=== PATIENT | male | born 1990 | race African-American/Black ===

== ENCOUNTER 2016-09-13 06:51 | Emergency (ER) | payer SELFPAY ==
[~2016-09-13] VITALS: Ht 182.9 cm; Wt 145.1 kg
[2016-09-13 07:00] VITALS: BP 150/90
[2016-09-13] MEDS ORDERED: HYDROcodone/APAP 5/325MG 1 TAB TABLET PO ONE (07:45)
[2016-09-13] MEDS ORDERED: CYCLOBENZAPRINE 10 MG TABLET. PO ONE (07:45)
[2016-09-13] MEDS ORDERED: HYDR-971 PO (08:02)
[2016-09-13] MEDS ORDERED: CYCL10TA2 PO (08:02)
[2016-09-13] MEDS ORDERED: AMOX500C PO (08:02)
--- NOTE | 2016-09-13 08:03 | PHYS DOC ---
Past Medical History Past Medical History: Diabetes-Type II, Other Additional Past Medical Histor: Cleft palate Past Surgical History: Other Additional Past Surgical Histo: Cleft palate repair Alcohol Use: None Drug Use: None Adult General Chief Complaint Chief Complaint: DENTAL PROBLEM HPI HPI Patient is a 26 year old male presents to the emergency department with a history of dental pain and inability to completely open his mouth for the last 3 days. Patient states he has been taking 800 mg Ibuprofen 5 at a time with no relief. He denies fever, chills, nausea or vomiting. He does state he has occasional bad taste in his mouth. He does not have a dentist. Review of Systems Review of Systems Constitutional: Denies fever or chills [] Eyes: Denies change in visual acuity, redness, or eye pain [] HENT: Denies nasal congestion or sore throat. Dental pain Respiratory: Denies cough or shortness of breath [] Cardiovascular: No additional information not addressed in HPI [] GI: Denies abdominal pain, nausea, vomiting, bloody stools or diarrhea [] : Denies dysuria or hematuria [] Musculoskeletal: Denies back pain or joint pain [] Integument: Denies rash or skin lesions [] Neurologic: Denies headache, focal weakness or sensory changes [] Endocrine: Denies polyuria or polydipsia [] Current Medications Current Medications Current Medications Medications (Trade) Dose Ordered Sig/Manuela Start Time Stop Time Status Last Admin Dose Admin Acetaminophen/ Hydrocodone Bitart (Lortab 5/325) 2 tab 1X ONCE 09/13/16 07:45 09/13/16 07:46 DC 09/13/16 07:51 2 TAB Cyclobenzaprine HCl (Flexeril) 10 mg 1X ONCE 09/13/16 07:45 09/13/16 07:46 DC 09/13/16 07:50 10 MG Allergies Allergies Allergies Coded Allergies Type Severity Reaction Last Updated Verified No Known Drug Allergies 09/13/16 No Physical Exam Physical Exam Constitutional: Well developed, well nourished, no acute distress, non-toxic appearance. [] HENT: Normocephalic, atraumatic, bilateral external ears normal, oropharynx moist, no oral exudates, nose normal. Bilateral TM normal, throat appears slightly red. Patient with tenderness noted at the TMJ area, tenderness noted along the left lower and upper back teeth, unable to completely visualize the area as patient is unable to open the mouth. Eyes: PERRLA, EOMI, conjunctiva normal, no discharge. [] Neck: Normal range of motion, no tenderness, supple, no stridor. [] Cardiovascular:Heart rate regular rhythm, no murmur [] Lungs & Thorax: Bilateral breath sounds clear to auscultation []] Skin: Warm, dry, no erythema, no rash. [] Back: No tenderness Extremities: No tenderness, no cyanosis, no clubbing, ROM intact, no edema. [] Neurologic: Alert and oriented X 3, normal motor function, normal sensory function, no focal deficits noted. [] Psychologic: Affect normal, judgement normal, mood normal. [] Current Patient Data Vital Signs Vital Signs Date Time Temp Pulse Resp B/P (MAP) Pulse Ox O2 Delivery O2 Flow Rate FiO2 09/13/16 07:51 18 98 Room Air 09/13/16 07:00 97.7 86 150/90 (110) 97.7 EKG EKG [] Radiology/Procedures Radiology/Procedures [] Course & Med Decision Making Course & Med Decision Making Pertinent Labs and Imaging studies reviewed. (See chart for details) Spoke with patient about limiting the number of Ibuprofen to 1 tablet every 8 hours to prevent GI upset or ulcers. Patient will be provided with [place] and flexeril in which patient was instructed would cause drowsiness do not take if you need to be alert and oriented. Patient will also be placed on antibiotic as complete visualization of dental area was limited. Patient will be provided with dental list. Patient will be discharged home in stable condition with recommendations to drink plenty of fluids to stay hydrated. Patient agrees with discharged home in stable condition. Signs and symptoms to return to the emergency department have been provided. [] Dragon Disclaimer Dragon Disclaimer This electronic medical record was generated, in whole or in part, using a voice recognition dictation system. Departure Departure Impression: Primary Impression: Pain, dental Additional Impression: TMJ (sprain of temporomandibular joint) Disposition: 01 HOME, SELF-CARE Condition: STABLE Referrals: NO PCP (PCP) Patient Instructions: Dental Pain, [id number], Temporomandibular Joint Pain- Brief Additional Instructions: Activity as tolerated Medication as prescribed [place] and Flexeril will cause drowsiness do not take if you need to be alert and oriented Limit the amount of Ibuprofen to 1 tablet every 8 hours with food, stop taking if you develop upset stomach Antibiotic as prescribed Followup with dentist in 1 week Return to emergency department as needed for signs and symptoms that become worse. Scripts Amoxicillin (AMOXICILLIN) 500 Mg Capsule 1 CAP PO QID, #40 CAP Prov: JEFF RICO APRN 09/13/16 Hydrocodone/Apap 5-325 (NORCO 5-325 TABLET) 1 Each Tablet 1 TAB PO PRN Q6HRS Y for PAIN, #15 TAB 0 Refills Prov: JEFF RICO APRN 09/13/16 Cyclobenzaprine Hcl (CYCLOBENZAPRINE HCL) 10 Mg Tablet 10 MG PO TID Y for MUSCLE SPASMS, #30 TAB Prov: JEFF RICO APRN 09/13/16 Problem Qualifiers JEFF RICO APRN Sep 13, 2016 08:03
== END 2016-09-13 08:14 | disposition home or self-care (01) ==
LOC: ER 06:51
DX: S03.42XA Sprain of jaw, left side, initial encounter (principal); E11.9 Type 2 diabetes mellitus without complications; Z98.890 Other specified postprocedural states; X58.XXXA Exposure to other specified factors, initial encounter; Y93.89 Activity, other specified; Y99.8 Other external cause status; Y92.89 Other specified places as the place of occurrence of the external cause
CPT/HCPCS: 99283

== ENCOUNTER 2016-09-14 18:01 | Emergency (ER) | payer SELFPAY ==
[~2016-09-14] VITALS: Ht 182.9 cm; Wt 145.1 kg
[~2016-09-14 18:01] MED LIST: AMOX500C PO; CYCL10TA2 PO; HYDR-971 PO
[2016-09-14] MEDS ORDERED: IV NORMAL SALINE 1000ML BAG 1,000 ML IV SCH (18:24)
[2016-09-14 18:32] LABS: BASO # 0.1 x10^3/uL (0.0-0.2); BASO % 1 % (0-3); EOS % 1 % (0-3); HEMATOCRIT 44.2 % (39.0-53.0); HEMOGLOBIN 14.7 g/dL (13.0-17.5); LYMPH # 1.6 x10^3/uL (1.0-4.8); LYMPH % 16 % (24-48); MEAN CORPUSCULAR HEMOGLOBIN 28 pg (25-35); MEAN CORPUSCULAR HGB CONC 33 g/dL (31-37); MEAN CORPUSCULAR VOLUME 84 fL (79-100); MONO % 11 % (0-9); NEUT % 70 % (31-73); PLATELET COUNT 183 x10^3/uL (140-400); RED BLOOD COUNT 5.25 x10^6/uL (4.30-5.70); RED CELL DISTRIBUTION WIDTH 13.1 % (11.5-14.5); WHITE BLOOD COUNT 9.8 x10^3/uL (4.0-11.0)
[2016-09-14 18:51] LABS: CALCIUM 9.3 mg/dL (8.5-10.1); CREATININE 0.7 mg/dL (0.7-1.3); GFR 163.7
[2016-09-14 18:57] LABS: ALBUMIN 3.8 g/dL (3.4-5.0); ALBUMIN/GLOBULIN RATIO 0.9 (1.0-1.7); TOTAL BILIRUBIN 0.8 mg/dL (0.2-1.0); TOTAL PROTEIN 8.2 g/dL (6.4-8.2)
[2016-09-14] MEDS ORDERED: IOHEXOL 300 MG/ML 75 ML VIAL IV ONE (19:00)
[2016-09-14 19:01] LABS: % EOS 1 % (0-5); PLT ESTIMATE ADEQUATE (ADEQUATE)
--- NOTE | 2016-09-14 20:24 | RAD ---
CT soft tissue neck with contrast HISTORY: Difficulty swallowing a left-sided throat pain Axial helical images are obtained of the neck after the administration of 70 mL IV Omni 300 contrast and axial coronal and sagittal reconstruction was performed. There is diffuse soft tissue swelling involving the left palatine tonsil which measures as great as 3.2 x 1.6 cm. The swelling and fluid continues inferiorly along the left oropharynx and involves the left aryepiglottic fold and continues to the level of the hyoid. There is no enhancing abscess. The epiglottis appears normal. There are numerous small lymph nodes in the neck bilaterally. The thyroid appears normal. The left submandibular salivary gland is swollen. The parotids appear normal. IMPRESSION: 1. Left-sided tonsillitis. 2. The fluid and edema tracks inferiorly to the level of the hyoid on the left and an early retropharyngeal abscess is possible. Electronically signed by: Margarito Billingsley III, MD (09/14/2016 8:21 PM) [facility]
[2016-09-14 20:43] VITALS: BP 116/59
--- NOTE | 2016-09-14 20:43 | PHYS DOC ---
Past Medical History Past Medical History: Diabetes-Type II, Other Additional Past Medical Histor: Cleft palate Past Surgical History: Other Additional Past Surgical Histo: Cleft palate repair Alcohol Use: None Drug Use: None Adult General Chief Complaint Chief Complaint: DIFFICULTY SWALLOWING HPI HPI Patient is a 26 year old male who returns to the ED after being seen yesterday , with worsened symptoms. Patient is having difficulty swallowing. He feels like there is swelling and pain on the left side of his mouth/throat. This did not start as a sore throat. It started as a feeling of swelling and difficulty opening his mouth on Monday, 4 days ago. He thought it seemed to start by his "wisdom teeth". Patient does not have a dentist. He was seen here yesterday and started on antibiotics which she didn't fill and has been taking, also pain pills and muscle relaxers. He states the pain pills put him to sleep but when he wakes up he still can't swallow and has pain. Patient has never had this before. He does have a history of untreated diabetes. He doesn't have a dentist and does have some dental problems. Review of Systems Review of Systems Constitutional: Denies fever or chills [] Eyes: Denies change in visual acuity, redness, or eye pain [] HENT: As in history of present illness Respiratory: Denies cough or shortness of breath [] Cardiovascular: Denies chest pain GI: Denies abdominal pain, nausea, vomiting, bloody stools or diarrhea [] : Denies dysuria or hematuria [] Musculoskeletal: Denies back pain or joint pain [] Integument: Denies rash or skin lesions [] Neurologic: Denies headache, focal weakness or sensory changes [] Current Medications Current Medications Current Medications Medications (Trade) Dose Ordered Sig/Manuela Start Time Stop Time Status Last Admin Dose Admin Clindamycin Phosphate 50 ml @ 100 mls/hr 1X ONCE 09/14/16 21:30 09/14/16 21:59 DC 09/14/16 21:17 100 MLS/HR Fentanyl Citrate (Fentanyl 2ml Vial) 50 mcg PRN Q15MIN PRN 09/14/16 21:15 09/14/16 22:09 DC 09/14/16 21:12 50 MCG Iohexol (Omnipaque 300 Mg/ml) 75 ml 1X ONCE 09/14/16 19:00 09/14/16 19:04 DC 09/14/16 19:34 75 ML Sodium Chloride 1,000 ml @ 1,000 mls/hr Q1H 09/14/16 18:24 09/14/16 19:23 DC 09/14/16 18:42 1,000 MLS/HR Allergies Allergies Allergies Coded Allergies Type Severity Reaction Last Updated Verified No Known Drug Allergies 09/13/16 No Physical Exam Physical Exam Constitutional: Well developed, well nourished, alert, mentating normally, heart rate 114, blood pressure 152/91 HENT: Normocephalic, atraumatic, bilateral external ears normal, nose normal. Mouth with poor dentition. Patient exhibits trismus and is not able to open his mouth widely. His tongue is not swollen. I do see swelling in the posterior pharynx on the left which appears to include the tonsil area and the soft palate , uvula appears to be midline, I do not see indication of pointing abscess. Eyes: conjunctiva normal, no discharge. [] Neck: Normal range of motion, supple, no stridor. Left-sided fullness and tenderness without palpable mass Cardiovascular:Heart rate regular rhythm, no murmur , tachycardic Lungs & Thorax: Bilateral breath sounds clear to auscultation [] Abdomen: Bowel sounds normal, soft, no tenderness, no masses, no pulsatile masses. [] Skin: Warm, dry, no erythema, no rash. [] Extremities: No tenderness, no cyanosis, no clubbing, ROM intact, no edema. [] Neurologic: Alert and oriented X 3, normal motor function, normal sensory function, no focal deficits noted. [] Current Patient Data Vital Signs Vital Signs Date Time Temp Pulse Resp B/P (MAP) Pulse Ox O2 Delivery O2 Flow Rate FiO2 09/14/16 21:12 Room Air 09/14/16 20:43 88 21 116/59 (78) 98 09/14/16 18:15 98.6 98.6 Lab Values Laboratory Tests Test 09/14/16 17:35 White Blood Count 9.8 x10^3/uL (4.0-11.0) Red Blood Count 5.25 x10^6/uL (4.30-5.70) Hemoglobin 14.7 g/dL (13.0-17.5) Hematocrit 44.2 % (39.0-53.0) Mean Corpuscular Volume 84 fL (79-100) Mean Corpuscular Hemoglobin 28 pg (25-35) Mean Corpuscular Hemoglobin Concent 33 g/dL (31-37) Red Cell Distribution Width 13.1 % (11.5-14.5) Platelet Count 183 x10^3/uL (140-400) Neutrophils (%) (Auto) 70 % (31-73) Lymphocytes (%) (Auto) 16 % (24-48) L Monocytes (%) (Auto) 11 % (0-9) H Eosinophils (%) (Auto) 1 % (0-3) Basophils (%) (Auto) 1 % (0-3) Neutrophils # (Auto) 6.9 x10^3uL (1.8-7.7) Lymphocytes # (Auto) 1.6 x10^3/uL (1.0-4.8) Monocytes # (Auto) 1.1 x10^3/uL (0.0-1.1) Eosinophils # (Auto) 0.1 x10^3/uL (0.0-0.7) Basophils # (Auto) 0.1 x10^3/uL (0.0-0.2) Segmented Neutrophils % 60 % (35-66) Lymphocytes % 29 % (24-48) Atypical Lymphocytes % (Manual) 1 % (0-0) H Monocytes % 9 % (0-10) Eosinophils % 1 % (0-5) Platelet Estimate Adequate (ADEQUATE) Sodium Level 135 mmol/L (136-145) L Potassium Level 4.0 mmol/L (3.5-5.1) Chloride Level 96 mmol/L (98-107) L Carbon Dioxide Level 25 mmol/L (21-32) Anion Gap 14 (6-14) Blood Urea Nitrogen 5 mg/dL (8-26) L Creatinine 0.7 mg/dL (0.7-1.3) Estimated GFR (Cockcroft-Gault) 163.7 BUN/Creatinine Ratio 7 (6-20) Glucose Level 236 mg/dL (70-99) H Calcium Level 9.3 mg/dL (8.5-10.1) Total Bilirubin 0.8 mg/dL (0.2-1.0) Aspartate Amino Transferase (AST) 13 U/L (15-37) L Alanine Aminotransferase (ALT) 30 U/L (16-63) Alkaline Phosphatase 61 U/L (46-116) Total Protein 8.2 g/dL (6.4-8.2) Albumin 3.8 g/dL (3.4-5.0) Albumin/Globulin Ratio 0.9 (1.0-1.7) L Laboratory Tests 09/14/16 17:35 Laboratory Tests 09/14/16 17:35 EKG EKG [] Radiology/Procedures Radiology/Procedures CT scan of the neck soft tissue read by the radiologist and reviewed by me. Diffuse soft tissue swelling of the left tonsil consistent with left-sided tonsillitis, early retropharyngeal abscess is possible but there is no enhancing abscess. [] Course & Med Decision Making Course & Med Decision Making Pertinent Labs and Imaging studies reviewed. (See chart for details) 26-year-old male presents with left-sided throat/tonsil/pharyngeal swelling, trismus, and difficulty swallowing. He was given a liter of IV fluids, labs obtained, and CT scan obtained. The CT scan results. The patient does not appear to have a drainable abscess at this time. The patient was given a dose of IV clindamycin. I discussed the case with Dr. Joy, [facility], and she and I are both concerned that if the patient's problem does develop into an abscess, we do not have ENT or oral surgery here at [facility]. We feel like he should be hospitalized where there is ENT/oral surgery support for this potential problem. I called [facility] and spoke with the transfer nurse who put me in touch with Dr. Shipley, [facility]. She will accept the patient for transfer to [facility]. The patient is agreeable to this plan. Transfer paperwork was completed. [] Dragon Disclaimer Dragon Disclaimer This electronic medical record was generated, in whole or in part, using a voice recognition dictation system. Departure Departure Impression: Primary Impression: Tonsillitis Additional Impressions: Trismus Retropharyngeal abscess Disposition: 02 [facility] Condition: STABLE Referrals: NO PCP (PCP) Problem Qualifiers MARIA ISABEL BARCLAY MD Sep 14, 2016 20:43
[2016-09-14] MEDS ORDERED: fentaNYL PF VIAL 100 MCG/2 ML VIAL IV PRN (21:15)
[2016-09-14] MEDS ORDERED: CLINDAMYCIN 600MG PREMIX 50 ML IV ONE (21:30)
== END 2016-09-14 22:08 | disposition short-term general hospital (02) ==
LOC: ER 18:01
DX: J03.90 Acute tonsillitis, unspecified (principal); J39.0 Retropharyngeal and parapharyngeal abscess; R25.2 Cramp and spasm; E11.9 Type 2 diabetes mellitus without complications; Z98.890 Other specified postprocedural states
CPT/HCPCS: 36415; 70491; 80053; 85007; 85027; 96361; 96365; 96375; 99285; J3010; J3490; J7030; Q9967

== ENCOUNTER 2019-11-09 21:26 | Emergency (ER) | payer BC ==
[~2019-11-09] VITALS: Ht 335.3 cm; Wt 143.1 kg
[~2019-11-09 21:26] MED LIST changes: +HYDR-3164 PO; -HYDR-971 PO
[2019-11-09 21:36] VITALS: BP 158/92
--- NOTE | 2019-11-09 21:39 | PHYS DOC ---
Past Medical History Past Medical History: Diabetes-Type II, Other Additional Past Medical Histor: Cleft palate Past Surgical History: Other Additional Past Surgical Histo: Cleft palate repair Smoking Status: Current Every Day Smoker Alcohol Use: None Drug Use: None General Adult EDM: Chief Complaint: HAND PROBLEM HPI: HPI: Patient is a 29 year old right-handed male who punched a wall about an hour prior to arrival and complains of 7 out of 10 right ulnar-sided hand pain. Pain is nonradiating worse with palpation and movement. Patient denies any weakness or numbness. Patient has any other trauma. Review of Systems: Review of Systems: Constitutional: Denies fever or chills. [] Eyes: Denies change in visual acuity. [] HENT: Denies nasal congestion or sore throat. [] Respiratory: Denies cough or shortness of breath. [] Cardiovascular: Denies chest pain or edema. [] GI: Denies abdominal pain, nausea, vomiting, bloody stools or diarrhea. [] : Denies dysuria. [] Musculoskeletal: Denies back pain, complains of right hand pain Integument: Denies rash. [] Neurologic: Denies headache, focal weakness or sensory changes. [] Endocrine: Denies polyuria or polydipsia. [] Lymphatic: Denies swollen glands. [] Psychiatric: Denies depression or anxiety. [] Heart Score: Risk Factors: Risk Factors: DM, Current or recent (<one month) smoker, HTN, HLP, family history of CAD, obesity. Risk Scores: Score 0 - 3: 2.5% MACE over next 6 weeks - Discharge Home Score 4 - 6: 20.3% MACE over next 6 weeks - Admit for Clinical Observation Score 7 - 10: 72.7% MACE over next 6 weeks - Early Invasive Strategies Allergies: Allergies: Allergies Coded Allergies Type Severity Reaction Last Updated Verified No Known Drug Allergies 09/13/16 No Physical Exam: PE: Constitutional: Well developed, well nourished, no acute distress, non-toxic appearance. [] HENT: Normocephalic, atraumatic, bilateral external ears normal, no trismus, nose normal. [] Eyes: PERRLA, EOMI, conjunctiva normal, no discharge. [] Neck: Normal range of motion, no tenderness, supple, no stridor. [] Cardiovascular:Heart rate regular rhythm, peripheral pulses intact, cap refill brisk Lungs & Thorax: Bilateral breath sounds clear, no respiratory distress Abdomen: Bowel sounds normal, soft, no tenderness, no masses, no pulsatile masses. [] Skin: Warm, dry, no erythema, no rash. [] Back: No tenderness, no CVA tenderness. [] Extremities: Tenderness and swelling to the right ulnar hand, neurovascular intact distally Neurologic: Alert and oriented X 3, normal motor function, normal sensory function, no focal deficits noted. [] Psychologic: Affect normal, judgement normal, mood normal. [] Current Patient Data: Vital Signs: Vital Signs Date Time Temp Pulse Resp B/P (MAP) Pulse Ox O2 Delivery O2 Flow Rate FiO2 11/09/19 21:49 24 100 11/09/19 21:36 98.1 82 22 158/92 (114) 98 Room Air 98.1 EKG: EKG: [] Radiology/Procedures: Radiology/Procedures: [][facility] [address] [place] [address] IMAGING REPORT Signed PATIENT: ARYA ALVA ACCOUNT: [id number] : 1990 LOCATION: ER AGE: 29 SEX: M EXAM STATUS: PRE ER ORD. PHYSICIAN: CRYSTAL FRASER MD REASON: right hand trauma PROCEDURE: HAND RIGHT 3V Study: CR HAND RIGHT 3V Indication: Right hand trauma. Comparison: None. Findings: Acute fracture off the dorsal/ulnar margin of the hamate immediately adjacent to the fifth CMC joint. There is around a millimeter of separation between the fragment and parent bone as seen on the oblique view. Suspected small additional fracture at the volar margin of the fifth metacarpal base. Impression: Acute fracture seen at the dorsal/ulnar margin of the hamate adjacent to the fifth CMC joint. There also appears to be a small chip fracture off the volar margin of the most proximal fifth metacarpal. Correlate for a mechanism of injury that would allow for dislocation/relocation of the fifth CMC joint resulting in impaction. Electronically signed by: ARTEMIO TIJERINA MD (11/09/2019 10:11 PM) [id number] DICTATED and SIGNED BY: ARTEMIO TIJERINA MD DATE: 11/09/192210 Course & Med Decision Making: Course & Med Decision Making Pertinent Labs and Imaging studies reviewed. (See chart for details) [] Right-sided ulnar gutter splint with Ortho-Glass was applied by clinical technician. Examined by me after application, neurovascular intact, cap refill less than 2 seconds, sensation intact Dragon Disclaimer: Dragon Disclaimer: This electronic medical record was generated, in whole or in part, using a voice recognition dictation system. Departure Departure Impression: Primary Impression: Fracture of hamate of right wrist Additional Impression: Fracture of fifth metacarpal bone of right hand Disposition: HOME, SELF-CARE Condition: STABLE Referrals: NO PCP (PCP) RAUDEL JOINER II, MD 2-3 days Patient Instructions: Hand Fracture, Hand Fracture, Fifth Metacarpal, Splint Care, [id number] Additional Instructions: EMERGENCY DEPARTMENT GENERAL DISCHARGE INSTRUCTIONS THANK YOU for coming to [facility] Emergency Department (ED) today and trusting us with your care. We trust that you had a positive experience in our Emergency Department. If you wish to speak to the department Management you can contact the veneer department manager at . YOUR FOLLOW UP INSTRUCTIONS ARE FOLLOWS: Do you have a private doctor? If you do not have a private doctor, please ask for a resource list of physicians or clinics that may be able to assist you with follow up care. The Emergency Physician has interpreted your x-rays. The X-ray specialist will also review them. If there is a change in the findings you will be notified in 48 hours when at all possible. A lab test or lab culture may have been done, your results will be reviewed and you will be notified if you need a change in treatment. ADDITIONAL INSTRUCTIONS AND INFORMATION Your care today has been supervised by a physician who is specially trained in emergency care. Many problems require more than one evaluation for a complete diagnosis and treatment. We recommend that you schedule your follow up appointment as recommended to ensure complete treatment of your illness or injury. If you are unable to obtain follow up care and continue to have a problem, or if your condition worsens we recommend that you return to the ED. We are not able to safely determine your condition over the phone nor are we able to give sound medical advice over the phone. For these safety reasons, if you call for medical advice we will ask you to come to the ED for further evaluation If you have any questions regarding these discharge instructions please call the ED at . SAFETY INFORMATION In the interest of safety, wellness, and injury prevention; we encourage you to wear your seatbelt, if you smoke; quit smoking, and we encourage your family to use prot ective helmet for bicycling and other sporting events that present an increased risk for head injury. IF YOUR SYMPTOMS WORSEN OR NEW SYMPTOMS DEVELOP, OR YOU HAVE CONCERNS ABOUT YOUR CONDITION; OR IF YOUR CONDITION WORSENS WHILE YOU ARE WAITING FOR YOUR FOLLOW UP APPOINTMENT; EITHER CONTACT YOUR PRIMARY CARE DOCTOR, THE PHYSICIAN WHOSE NAME AND NUMBER YOU WERE GIVEN, OR RETURN TO THE ED IMMEDIATELY. Scripts Hydrocodone/Apap 5-325 (NORCO 5-325 TABLET) 1 Each Tablet 1-2 EACH PO PRN Q6HRS PRN for PAIN, #15 as needed for pain Prov: CRYSTAL FRASER MD 11/09/19 Justicifation of Admission Dx: Justifications for Admission: Justification of Admission Dx: N/A CRYSTAL FRASER MD Nov 09, 2019 21:38
[2019-11-09] MEDS ORDERED: HYDROcodone/APAP 7.5/325MG 1 TAB TABLET PO ONE (22:00)
--- NOTE | 2019-11-09 22:14 | RAD ---
Study: CR HAND RIGHT 3V Indication: Right hand trauma. Comparison: None. Findings: Acute fracture off the dorsal/ulnar margin of the hamate immediately adjacent to the fifth CMC joint. There is around a millimeter of separation between the fragment and parent bone as seen on the oblique view. Suspected small additional fracture at the volar margin of the fifth metacarpal base. Impression: Acute fracture seen at the dorsal/ulnar margin of the hamate adjacent to the fifth CMC joint. There also appears to be a small chip fracture off the volar margin of the most proximal fifth metacarpal. Correlate for a mechanism of injury that would allow for dislocation/relocation of the fifth CMC joint resulting in impaction. Electronically signed by: ARTEMIO TIJERINA MD (11/09/2019 10:11 PM) [id number]
[2019-11-09] MEDS ORDERED: HYDR-3164 PO (22:22)
== END 2019-11-09 22:50 | disposition home or self-care (01) ==
LOC: ER 21:26
DX: S62.141A Displaced fracture of body of hamate [unciform] bone, right wrist, initial encounter for closed fracture (principal); S62.306A Unspecified fracture of fifth metacarpal bone, right hand, initial encounter for closed fracture; E11.9 Type 2 diabetes mellitus without complications; F17.200 Nicotine dependence, unspecified, uncomplicated; W22.01XA Walked into wall, initial encounter; Y93.89 Activity, other specified; Y92.89 Other specified places as the place of occurrence of the external cause; Y99.8 Other external cause status
CPT/HCPCS: 29125; 73130; 99283